=== PATIENT | female | born 1995 | race Caucasian/White ===

== ENCOUNTER 2022-09-13 12:34 | Emergency (ER) | payer SELFPAY ==
[2022-09-13 13:11] LABS: Urine Blood Negative (Negative); Urine Glucose Negative (Negative); Urine Protein Negative (Negative); Urine Specific Gravity 1.025 (1.005-1.030)
[2022-09-13 13:21] LABS: Urine Specific Gravity/Preg 1.025 (1.005-1.030)
[2022-09-13 13:30] LABS: Hematocrit 37.7 % (36.0-45.0); Lymphocytes % 18.1 % (15.3-44.8); MCV 89.7 fL (80-100); MPV 8.8 fL (7.6-11.3); RBC Red Blood Cell Count 4.21 M/uL (3.86-4.86)
[2022-09-13 13:48] LABS: Potassium 3.5 mmol/L (3.5-5.1)
--- NOTE | 2022-09-13 14:32 | RAD REPORT ---
EXAM DESCRIPTION: US - 1St Trimest Single 1St Fetus - 09/13/2022 2:00 pm CLINICAL HISTORY: ABD CRAMPING, COMPARISON: No comparisons FINDINGS: The uterus measures 11.4 cm. The right ovary measures 3.2 cm x 1.6 cm x 2.8 cm with volume of 7.5 cm. The left ovary measurse 3 cm x 2.1 cm x 2.9 cm with volume of 9.6 mL. Both ovaries have b lood flow. The crown rump length measures 6.7 cm which is consistent with 13 weeks 0 day. heart rate measu res 148 beats/minute. Small subchorionic hemorrhage measuring less than 25% of the gestational sac. IMPRESSION: Single viable IUP with positive heart tones measuring 13 weeks 0 day with DEXTER of 0 03/21/2023. Tiny subchorionic hemorrhage which is probably of little clinical significance. Bilateral ovarian blood flow.
--- NOTE | 2022-09-13 14:44 | EDPHYS ---
Physician Documentation [facility] Name: Jocelyn Robbins Age: 27 yrs Sex: Female : 1995 Arrival Date: 09/13/2022 Time: 12:35 Bed 24 Private MD: ED Physician Alexy Sim HPI: 09/13 12:57 This 27 yrs old Female presents to ER via Ambulatory with complaints of Urinary kb Problem, Pelvic Pain - 13 wks preg, Abdominal Pain. 12:57 The patient presents to the emergency department with abdominal pain. course: kb care: none, Leakage of Fluid: none appreciated, Ultrasound: the patient had an ultrasound. Previous pregnancies: in previous pregnancies patient has had ectopic . Associated signs and symptoms: Pertinent positives: abdominal pain, Pertinent negatives: vaginal bleeding, vaginal discharge. The patient has not experienced similar symptoms in the past. The patient has not recently seen a physician. Pt reports lower abd cramping with intermittent sharp pains that started a few days to a week ago. Denies vaginal bleeding. Reports she is , but hasn't been able to get on medicaid yet so she hasn't been to an OB. Reports she was seen at an ER in [place] twice for this and told everything was fine. Last visit was in July. 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 - Social history:: Smoking status: Patient denies any tobacco usage or history of. Patient/guardian denies using alcohol. ROS: 13:01 Constitutional: Negative for fever, chills, and weight loss. kb 13:01 Abdomen/GI: Positive for abdominal pain, Negative for nausea, vomiting, and diarrhea. 13:01 All other systems are negative. Exam: 13:01 Constitutional: This is a well developed, well nourished patient who is awake, alert, kb and in no acute distress. Head/Face: Normocephalic, atraumatic. ENT: Moist Mucous membranes Cardiovascular: Regular rate and rhythm with a normal S1 and S2. No gallops, murmurs, or rubs. No pulse deficits. Respiratory: Respirations even and unlabored. No increased work of breathing. Talking in full sentences Skin: Warm, dry with normal turgor. Normal color. MS/ Extremity: Pulses equal, no cyanosis. Neurovascular intact. Full, normal range of motion. Neuro: Awake and alert, GCS 15, oriented to person, place, time, and situation. Moves all extremities. Normal gait. 13:01 Abdomen/GI: Inspection: abdomen appears normal, Bowel sounds: normal, Palpation: soft, in all quadrants, mild abdominal tenderness, in the suprapubic area and left lower quadrant. Vital Signs: 12:46 BP 152 / 85; Pulse 106; Resp 18; Temp 97.9(O); Pulse Ox 99% on R/A; Weight 104.33 kg; ld1 Height 5 ft. 6 in. (167.64 cm); Pain 0/10; 13:00 BP 113 / 75; Pulse 101; Resp 18; Pulse Ox 99% on R/A; eh3 14:00 BP 110 / 72; Pulse 92; Resp 18; Pulse Ox 98% ; eh3 12:46 Body Mass Index 37.12 (104.33 kg, 167.64 cm) ld1 MDM: 12:37 Patient medically screened. kb 13:01 Data reviewed: vital signs, nurses notes. Data interpreted: Pulse oximetry: on room air kb is 99 %. Interpretation: normal. 14:40 Counseling: I had a detailed discussion with the patient and/or guardian regarding: the kb historical points, exam findings, and any diagnostic results supporting the discharge/admit diagnosis, lab results, radiology results, the need for outpatient follow up, an OB/Gyne specialist, to return to the emergency department if symptoms worsen or persist or if there are any questions or concerns that arise at home. 09/13 12:49 Order name: Abo/rh Typing; Complete Time: 13:44 kb 09/13 12:49 Order name: Basic Metabolic Panel; Complete Time: 13:49 kb 09/13 12:49 Order name: CBC with Diff; Complete Time: 13:34 kb 09/13 12:49 Order name: Quantitative Hcg; Complete Time: 13:49 kb 09/13 13:11 Order name: Urine Dipstick-Ancillary; Complete Time: 13:16 EDMS 09/13 13:13 Order name: Urine --Ancillary (enter results); Complete Time: 13:22 bd 09/13 12:49 Order name: IV Saline Lock; Complete Time: 13:10 kb 09/13 12:49 Order name: Labs collected and sent; Complete Time: 13:10 kb 09/13 12:49 Order name: NPO; Complete Time: 12:51 kb 09/13 12:49 Order name: Urine Dipstick-Ancillary (obtain specimen); Complete Time: 13:10 kb 09/13 12:49 Order name: Urine Test (obtain specimen); Complete Time: 13:10 kb 09/13 13:22 Order name: 1St Trimest Single 1St Fetus; Complete Time: 14:38 EDMS 09/13 14:21 Order name: ABO/RH no charge; Complete Time: 14:30 EDMS Administered Medications: No medications were administered Disposition: 16:57 Co-signature as Attending Physician, Alexy Sim MD I agree with the assessment and rt plan of care. Disposition Summary: 09/13/22 14:43 Discharge Ordered Location: Home kb Condition: Stable kb Diagnosis - 13 weeks gestation of kb Followup: kb - With: Emergency Department - When: As needed - Reason: Worsening of condition Followup: kb - With: Private Physician - When: 2 - 3 days - Reason: Recheck today's complaints, Continuance of care, Re-evaluation by your physician Discharge Instructions: - Discharge Summary Sheet kb - Abdominal Pain During kb Forms: - Medication Reconciliation Form kb - Thank You Letter kb - Antibiotic Education kb - Prescription Opioid Use kb Signatures: Dispatcher [employer] EDMS Kylie Mayo, INSTRUCTOR MODELING-C ARIADNA-Fany Yu RN RN ld1 Alexy Sim MD MD rt Corrections: (The following items were deleted from the chart) 12:47 12:46 PMHx: Unable to Obtain; ld1 ld1 12:47 12:46 PMHx: None; ld1 ld1 12:47 12:46 PSHx: Ectopic ; ld1 ld1 13:22 12:50 OB Limited+US.RAD.BRZ ordered. EDMS EDMS
--- NOTE | 2022-09-13 14:44 | ER ---
Nurse's Notes [facility] Name: Jocelyn Robbins Age: 27 yrs Sex: Female : 1995 Arrival Date: 09/13/2022 Time: 12:35 Bed 24 Private MD: Diagnosis: 13 weeks gestation of Presentation: 09/13 12:46 Chief complaint: Patient states: Left side groin pain, sometimes hurts in right side as ld1 well. Sharp shooting pain off and on X 1 week. Coronavirus screen: At this time, the client does not indicate any symptoms associated with coronavirus-19. Ebola Screen: No symptoms or risks identified at this time. Initial Sepsis Screen: Does the patient meet any 2 criteria? No. Patient's initial sepsis screen is negative. Does the patient have a suspected source of infection? No. Patient's initial sepsis screen is negative. Risk Assessment: Do you want to hurt yourself or someone else? Patient reports no desire to harm self or others. Onset of symptoms was September 13, 2022. 12:46 Method Of Arrival: Ambulatory ld1 12:46 Acuity: FAWN 3 ld1 Triage Assessment: 12:46 General: Appears in no apparent distress. comfortable, Behavior is calm, cooperative, ld1 appropriate for age. Pain: Complains of pain in pelvis Pain does not radiate. Pain currently is 2 out of 10 on a pain scale. EENT: No signs and/or symptoms were reported regarding the EENT system. Neuro: Level of Consciousness is awake, alert, obeys commands, Oriented to person, place, time, situation. Cardiovascular: Capillary refill < 3 seconds Patient's skin is warm and dry. Respiratory: Airway is patent Respiratory effort is even, unlabored. GI: Abdomen is round non-distended. : No signs and/or symptoms were reported regarding the genitourinary system. Derm: No signs and/or symptoms reported regarding the dermatologic system. Musculoskeletal: No signs and/or symptoms reported regarding the musculoskeletal system. 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 - Social history:: Smoking status: Patient denies any tobacco usage or history of. Patient/guardian denies using alcohol. Screenin:49 Abuse screen: Denies threats or abuse. Denies injuries from another. Nutritional eh3 screening: No deficits noted. Tuberculosis screening: No symptoms or risk factors identified. Fall Risk None identified. Assessment: 12:49 General: Appears in no apparent distress. uncomfortable, Behavior is calm, cooperative, eh3 appropriate for age. Pain: Complains of pain in pelvis. Neuro: Level of Consciousness is awake, alert, obeys commands, Oriented to person, place, time, situation. Cardiovascular: Capillary refill < 3 seconds Patient's skin is warm and dry. Respiratory: Airway is patent Respiratory effort is even, unlabored, Respiratory pattern is regular, symmetrical. GI: Abdomen is round non-distended, Bowel sounds present X 4 quads. Abdomen is tender to palpation in right lower quadrant. : No signs and/or symptoms were reported regarding the genitourinary system. EENT: No signs and/or symptoms were reported regarding the EENT system. Derm: No signs and/or symptoms reported regarding the dermatologic system. Musculoskeletal: No signs and/or symptoms reported regarding the musculoskeletal system. Circulation, motion, and sensation intact. Range of motion: intact in all extremities. 13:45 Reassessment: Pt out of room for imaging at this time. eh3 14:00 Reassessment: Patient appears in no apparent distress at this time. Patient and/or eh3 family updated on plan of care and expected duration. Pain level reassessed. Patient is alert, oriented x 3, equal unlabored respirations, skin warm/dry/pink. Vital Signs: 12:46 BP 152 / 85; Pulse 106; Resp 18; Temp 97.9(O); Pulse Ox 99% on R/A; Weight 104.33 kg; ld1 Height 5 ft. 6 in. (167.64 cm); Pain 0/10; 13:00 BP 113 / 75; Pulse 101; Resp 18; Pulse Ox 99% on R/A; eh3 14:00 BP 110 / 72; Pulse 92; Resp 18; Pulse Ox 98% ; eh3 12:46 Body Mass Index 37.12 (104.33 kg, 167.64 cm) ld1 ED Course: 12:35 Patient arrived in ED. as 12:37 Kylie Mayo FNP-C [facility]. kb 12:37 Alexy Sim MD is Attending Physician. kb 12:46 Triage completed. ld1 12:46 Arm band placed on right wrist. ld1 12:48 Nancy Knight, RN is Primary Nurse. eh3 12:49 Patient has correct armband on for positive identification. Bed in low position. Call eh3 light in reach. Side rails up X2. Client placed on continuous cardiac and pulse oximetry monitoring. NIBP monitoring applied. Door closed. Noise minimized. Warm blanket given. 13:11 Inserted saline lock: 20 gauge in right antecubital area, using aseptic technique. eh3 Blood collected. 14:02 1St Trimest Single 1St Fetus In Process Unspecified. EDMS 14:45 No provider procedures requiring assistance completed. eh3 14:45 IV discontinued, intact, bleeding controlled, No redness/swelling at site. Pressure eh3 dressing applied. Administered Medications: No medications were administered Medication: 14:45 VIS not applicable for this client. eh3 Outcome: 14:43 Discharge ordered by . kb 14:58 Discharged to home ambulatory, with friend. eh3 14:58 Condition: stable 14:58 Discharge instructions given to patient, Instructed on discharge instructions, follow up and referral plans. Demonstrated understanding of instructions, follow-up care. 14:58 Patient left the ED. eh3 Signatures: Dispatcher [employer] EDGA Kylie Mayo FNP-C FNP-Ckb Martinez, Amelia as Fany Queen, RN RN ld1 Nancy Knight, ADDY RN eh3 Corrections: (The following items were deleted from the chart) 12:47 12:46 PMHx: Unable to Obtain; ld1 ld1 12:47 12:46 PMHx: None; ld1 ld1 12:47 12:46 PSHx: Ectopic ; ld1 ld1 13:54 13:54 Reassessment: Pt out of room for imaging at this time. eh3 eh3
[2022-09-13 15:11] VITALS: TEMP 97.9
[2022-09-13 15:13] VITALS: BP 110/72; O2SAT 98
== END 2022-09-13 14:58 | disposition home or self-care (01) ==
LOC: ER 12:34
DX: O26.891 Other specified pregnancy related conditions, first trimester (principal); Z3A.13 13 weeks gestation of pregnancy
CPT/HCPCS: 36415; 76801; 80048; 81003; 81025; 84702; 85025; 86900; 86901; 99283